=== PATIENT | male | born 1965 | race Caucasian/White ===

== ENCOUNTER 2020-09-06 09:09 | Emergency (ER) | payer BC, OTHER ==
--- NOTE | 2020-09-06 09:32 | EDM.PDOC ---
ED HPI GENERAL MEDICAL PROBLEM - General Stated Complaint: POSSIBLE PINK EYE Time Seen by Provider: 09/06/20 09:30 Source of Information: Reports: Patient History Limitations: Reports: No Limitations - History of Present Illness INITIAL COMMENTS - FREE TEXT/NARRATIVE: Patient presented to the Ed because of redness, matting, and greenish eye discharge which started yesterday. No cough/cold symptoms. - Related Data Allergies Allergy/AdvReac Type Severity Reaction Status Date / Time amoxicillin Allergy Stomach Verified 09/06/20 09:27 Ache Home Meds: Home Meds Betamethasone Dipropionate [Diprosone 0.05% Oint] 1 applic TOP BID 11/05/15 [History] Fluticasone Propionate [Flonase] 2 spr SHAYLA DAILY 11/05/15 [History] Multivitamin with Minerals [Multiple Vitamin] 1 ea PO DAILY 11/05/15 [History] [place]-3S/DHA/Epa/Fish Oil [[place]-3 Fish Oil 1,000 mg Sfgl] 1 ea PO DAILY 11/05/15 [History] hydroCHLOROthiazide [Hydrochlorothiazide] 12.5 mg PO DAILY 11/05/15 [History] Gentamicin Sulfate 2 drop OP QID #5 ml 09/06/20 [Rx] Past Medical History HEENT History: Reports: Allergic Rhinitis Cardiovascular History: Reports: Hypertension Gastrointestinal History: Reports: GERD Dermatologic History: Reports: Eczema ED ROS ENT - Review of Systems Review Of Systems: See Below Constitutional: Reports: No Symptoms HEENT: Reports: Eye Discharge Respiratory: Reports: No Symptoms Cardiovascular: Reports: No Symptoms Endocrine: Reports: No Symptoms GI/Abdominal: Reports: No Symptoms : Reports: No Symptoms Musculoskeletal: Reports: No Symptoms Skin: Reports: No Symptoms Neurological: Reports: No Symptoms Psychiatric: Reports: No Symptoms ED EXAM, ENT - Physical Exam Exam: See Below Exam Limited By: No Limitations General Appearance: Lethargic Ears: Normal External Exam, Normal Canal, Hearing Grossly Normal Nose: Normal Inspection, Normal Mucousa Mouth/Throat: Normal Inspection, Normal Gums, Normal Lips Head: Atraumatic, Normocephalic Neck: Normal Inspection, Supple, Non-Tender, Full Range of Motion Respiratory/Chest: No Respiratory Distress, Lungs Clear, Normal Breath Sounds Cardiovascular: Normal Peripheral Pulses, Regular Rate, Rhythm, No Edema, No Gallop GI/Abdominal: Normal Bowel Sounds, Soft, Non-Tender, No Organomegaly Back: Normal Inspection, Full Range of Motion Extremities: Normal Inspection, Normal Range of Motion Course - Vital Signs Last Recorded V/S: Last Vital Signs Temp 36.7 C 09/06/20 09:15 Pulse 90 09/06/20 09:15 Resp 16 09/06/20 09:15 BP 117/82 09/06/20 09:15 Pulse Ox 93 L 09/06/20 09:15 Departure - Departure Time of Disposition: 09:50 Disposition: Home, Self-Care 01 Condition: Good Clinical Impression: Acute conjunctivitis - Discharge Information Prescriptions: Gentamicin Sulfate 2 drop OP QID #5 ml Instructions: Bacterial Conjunctivitis, Adult, [id number] Referrals: Danny Abrams MD [Primary Care Provider] - Forms: ED Department Discharge Additional Instructions: Please read discharge instructions on conjunctivitis Apply 2 drops on right eye 4 times daily for 7 days Follow up as needed Sepsis Event Note (ED) - Focused Exam Vital Signs: Vital Signs Temp Pulse Resp BP Pulse Ox 09/06/20 09:15 36.7 C 90 16 117/82 93 L
[2020-09-06 10:33] VITALS: BP 117/82; PULSE 90
== END 2020-09-06 09:45 | disposition home or self-care (01) ==
LOC: FB.ED 09:09
DX: H10.31 Unspecified acute conjunctivitis, right eye (principal); I10 Essential (primary) hypertension; Z88.0 Allergy status to penicillin
CPT/HCPCS: 99282